=== PATIENT | female | born 1970 | race Caucasian/White ===

== ENCOUNTER 2021-10-01 08:40 | Outpatient (CLI) | payer BC, SELFPAY ==
--- NOTE | 2021-10-01 08:52 | EST_ITS ---
Patient Info Name: Marine Holguin Age: 51 years : 1970 Gender: Female Ht: 63 in Wt: 160 lbs BSA: 1.82 m2 HR: 81 bpm BP: 136 / 64 mmHg Heart Rhythm: Sinus Rhythm Technical Quality: Fair Exam Date: 10/01/2021 9:16 AM Exam Location: [facility] Pulmonary Patient Status: Outpatient Admit Date: 10/01/2021 Staff Ordering Physician: Micheal Mckeon APRN Power Cleaner Operator: Donna Katz RDCS Attending Provider: DR. STEVEN Referring Physician: Mike GAMEZ; Exam Type: CA stress echo Study Info Indications - cp Treadmill exercise stress echocardiogram is performed. Summary 1. 1. Negative Isacc exercise stress test for ischemic ST changes by ECG criteria. 2. 2. Good functional capacity, achieving 8.9 METs of workload. 3. 3. Baseline hypertension. 4. 4. Appropriate HR response to exercise. 5. 5. Appropriate HR recovery at 1 minute post exercise. 6. 6. Negative stress echocardiogram for ischemia by wall motion analysis. 7. 7. Patient informed of the above results. Stress Echo Findings Left Ventricle Appropriate increase in LV endocardial thickening with systole. Appropriate augmentation of contractility with systole. No wall motion abnormality. Left Ventricle Normal LV systolic function, no wall motion abnormality. Protocol: Isacc Stress ECG Details Stage: REST Duration (min): 1 min : 10 sec Speed (mph): 0.0 Grade (%): 0 HR (bpm): 89 SBP (mmHg): 150 DBP (mmHg): 80 METS: --- Stage: REST Duration (min): 14 min : 15 sec Speed (mph): 0.0 Grade (%): 0 HR (bpm): 85 SBP (mmHg): 150 DBP (mmHg): 80 METS: --- Stage: REST Duration (min): 15 min : 5 sec Speed (mph): 0.0 Grade (%): 0 HR (bpm): 90 SBP (mmHg): 150 DBP (mmHg): 80 METS: --- Stage: REST Duration (min): 15 min : 26 sec Speed (mph): 0.0 Grade (%): 0 HR (bpm): 84 SBP (mmHg): 150 DBP (mmHg): 80 METS: --- Stage: REST Duration (min): 15 min : 55 sec Speed (mph): 0.0 Grade (%): 0 HR (bpm): 83 SBP (mmHg): 150 DBP (mmHg): 80 METS: --- Stage: STAGE 1 Duration (min): 0 min : 22 sec Speed (mph): 1.7 Grade (%): 10 HR (bpm): 102 SBP (mmHg): 150 DBP (mmHg): 80 METS: --- Stage: STAGE 1 Duration (min): 1 min : 0 sec Speed (mph): 1.7 Grade (%): 10 HR (bpm): 116 SBP (mmHg): 150 DBP (mmHg): 80 METS: --- Stage: STAGE 1 Duration (min): 2 min : 0 sec Speed (mph): 1.7 Grade (%): 10 HR (bpm): 127 SBP (mmHg): 150 DBP (mmHg): 80 METS: --- Stage: STAGE 1 Duration (min): 3 min : 0 sec Speed (mph): 1.7 Grade (%): 10 HR (bpm): 129 SBP (mmHg): 136 DBP (mmHg): 64 METS: --- Stage: STAGE 2 Duration (min): 1 min : 0 sec Speed (mph): 2.5 Grade (%): 12 HR (bpm): 142 SBP (mmHg): 136 DBP (mmHg): 64 METS: --- Stage: STAGE 2 Duration (min): 2 min : 0 sec Speed (mph): 2.5
== END 2021-10-01 08:41 | disposition home or self-care (01) ==
LOC: ANHCARD 08:41
PROVIDERS: PCP Internal Medicine; Visit Provider Nurse Practitioner
DX: R07.89 Other chest pain (principal); E78.2 Mixed hyperlipidemia; Z82.49 Family history of ischemic heart disease and other diseases of the circulatory system
CPT/HCPCS: 93351

== ENCOUNTER 2021-10-14 15:17 | Outpatient (CLI) | payer BC, SELFPAY ==
--- NOTE | ~2021-10-14 | MM_ITS ---
EXAMINATION: MM screening sofie BI w shyam HISTORY: Screening mammogram TECHNIQUE: Craniocaudal and mediolateral oblique 3-D tomosynthesis images were obtained and synthetic 2-D images were generated. CAD analysis was submitted and interpreted. COMPARISON: 11/10/2017 bilateral screening mammogram BREAST PARENCHYMAL COMPOSITION: There are scattered areas of fibroglandular density. FINDINGS: There is no evidence of suspicious mass, calcification, or architectural distortion to sugg est malignancy in either breast. There has been no suspicious interval change. IMPRESSION: 1. No mammographic evidence of malignancy. 2. Recommend routine screening mammography in one year. BI-RADS Category 1: Negative Reviewed, dictated and finalized at location A.
== END 2021-10-14 15:18 | disposition home or self-care (01) ==
PROVIDERS: PCP Internal Medicine; Visit Provider Nurse Practitioner
DX: Z12.31 Encounter for screening mammogram for malignant neoplasm of breast (principal)
CPT/HCPCS: 77063; 77067

== ENCOUNTER 2021-11-04 14:14 | Outpatient (CLI) | payer BC, SELFPAY ==
--- NOTE | ~2021-11-04 | US_ITS ---
EXAMINATION: US arterial ankle brachial ind DATE: 11/04/2021 14:44 INDICATION: Localized swelling to the lower limbs along with numbness and tingling. Peripheral vascul ar disease risk factors of hypertension and hypercholesterolemia. TECHNIQUE: Segmental pressures and plethysmographic and Doppler waveforms of the brachial and lower e xtremity arteries were obtained. COMPARISON: None. FINDINGS: Right and left brachial artery pressures of 107 mm Hg and 108 mm Hg, respectively, are concordant (no rmal difference <= 30 mmHg). The right ankle-brachial index (SANDEEP) is 1.07 (normal >= 0.9-1.0). The right great toe-brachial index (TBI) is 0.88 (normal >= 0.65). Arterial Doppler waveforms are biphasic with brisk systolic upstrokes at both right posterior tibial and dorsalis pedis arteries. The left SANDEEP is 1.06. The left TBI is 0.80. Arterial Doppler waveforms are biphasic with brisk systol ic upstrokes at both left posterior tibial and dorsalis pedis arteries. IMPRESSION: 1. No significant arterial occlusive disease to either lower limb with normal bilateral ABIs and TBIs . Reviewed, dictated and finalized at location B. IMPRESSION: 1. No significant arterial occlusive disease to either lower limb with normal b ilateral ABIs and TBIs.
== END 2021-11-04 14:15 | disposition home or self-care (01) ==
PROVIDERS: PCP Internal Medicine; Visit Provider Nurse Practitioner
DX: R60.0 Localized edema (principal)
CPT/HCPCS: 93922

== ENCOUNTER 2022-04-01 00:41 | Day surgery (SDC) | payer BC, SELFPAY ==
[2022-03-25 15:48] VITALS: BMI 29.2
--- NOTE | 2022-04-01 08:16 | P.PNAN_ITS ---
Anes - Initial Pre Proc Eval Procedure: Operation Date: 04/01/22 11:00 Proposed Procedures p Screening Colonoscopy - Krishna Cornelius MD Date/Time: 04/01/22 08:16 Surgeon: Krishna Cornelius MD Pre Op Diagnosis: neoplasm screening Patient Data Age: 52 Gender: F Height: 1.57 m Weight: 72.5 kg Allergies Allergy/AdvReac Type Severity Reaction Status Date / Time iodine Allergy Severe Hives Verified 03/25/22 15:50 Home Medications Medication Instructions Recorded Confirmed Type losartan 100 1 tablet PO DAILY #90 tabs 01/10/22 03/25/22 Rx mg-hydrochlorothiazide 25 mg tablet (Hyzaar) icosapent ethyl 1 gram capsule 2 g PO BID 03/25/22 03/25/22 History (Vascepa) Patient hx anesthesia problems: none Family hx anesthesia problems: none Results Review: All pre-operative results and documents have been reviewed as part of the pre- operative evaluation. [facility] Past Medical History Medical History Abnormal liver function Gout Hypertension Hypothyroidism (acquired) Mixed hyperlipidemia Psoriasis Vitamin D deficiency, unspecified Surgical History Surgical History History of endometrial ablation Family History Family History Grandparent Family history of malignant neoplasm of breast Social History Social History (Updated 03/17/22 @ 15:54 by Danuta Pillai CMA) Smoking status: Never smoker Second hand tobacco smoke exposure: No Alcohol intake: current Substance use: never Substance use type: does not use Lack of Transportation: No Lack of Food: Never True Current Housing: I Have Housing Concerned About Future Housing: No Difficulty Paying Gas/Electric Bills: No Difficulty Paying for Meds: No Currently Unemployed: No Education: Bachelor's Degree Difficulty w/ Childcare or Family Care: No Living arrangements: with friend(s) Spiritual care concerns: No Anes - Eval Final PreProcedure Day of Procedure 04/01/22 08:16 Patient weight: overweight Heart: regular rate and rhythm Lungs: clear to auscultation Airway: Mallampati scale class II Neurological: alert and oriented Last oral intake: >/= 8 hours ASA classification: II Emergent: no Anesthetic plan: proceed Anesthesia type and monitoring: general GIVS and standard monitoring Results Review: All pre-operative results and documents have been reviewed as part of the pre- operative evaluation. Informed Consent: The patient's anesthetic plan and its attendant risks and benefits were discussed with the patient/family/POA. Questions were solicited and answers provided to the satisfaction of the patient/family/POA.
[2022-04-01 09:53] VITALS: BP 125/86; PULSE 105; RESP 118; TEMP 36.2; O2SAT 98
[2022-04-01] MEDS: LACTATED RINGERS 1,000 ML 150 ML IV CONT (10:01)
--- NOTE | 2022-04-01 10:19 | PM.HPGS ---
History of Present Illness History of Present Illness Consent: Risks, benefits, and alternatives have been discussed and questions answered. Patient agrees to proceed with procedure. Chief complaint: neoplasm screening Narrative: Marine Holguin is a 52 year old female here for first screening colonoscopy Review of Systems Constitutional: Constitutional: Denies headache(s) and Denies weakness Eyes: Eyes: Denies blurry vision ENT: Reports Normal hearing present, Denies headache(s) and Denies neck pain Cardiovascular: Cardiovascular: Denies chest pain and Denies dyspnea Respiratory: Respiratory: Denies dyspnea Gastrointestinal: Gastrointestinal: Reports no additional gastrointestinal complaints Genitourinary: Genitourinary: Denies dysuria Musculoskeletal: Musculoskeletal: Denies neck pain Integumentary/Breasts: Skin/Breast: Reports rash Neurologic: Reports Normal hearing present, Denies headache(s) and Denies weakness Psychiatric: Psychiatric: Denies anxiety Endocrine: Endocrine: Denies change in body appearance Hematologic/Lymphatic: Hematologic/Lymphatic: Denies easy bleeding Allergic/Immunologic: Allergic/Immunologic: Denies urticaria PMFSH Past Medical History Medical History Abnormal liver function Gout Hypertension Hypothyroidism (acquired) Mixed hyperlipidemia Psoriasis Vitamin D deficiency, unspecified Surgical History Surgical History History of endometrial ablation Family History Family History Grandparent Family history of malignant neoplasm of breast Social History Social History (Updated 03/17/22 @ 15:54 by Danuta Pillai CMA) Smoking status: Never smoker Second hand tobacco smoke exposure: No Alcohol intake: current Substance use: never Substance use type: does not use Lack of Transportation: No Lack of Food: Never True Current Housing: I Have Housing Concerned About Future Housing: No Difficulty Paying Gas/Electric Bills: No Difficulty Paying for Meds: No Currently Unemployed: No Education: Bachelor's Degree Difficulty w/ Childcare or Family Care: No Living arrangements: with friend(s) Spiritual care concerns: No Meds Home Medications and Allergies Home Medications Medication Instructions Recorded Confirmed Type losartan 100 1 tablet PO DAILY #90 tabs 01/10/22 03/25/22 Rx mg-hydrochlorothiazide 25 mg tablet (Hyzaar) icosapent ethyl 1 gram capsule 2 g PO BID 03/25/22 03/25/22 History (Vascepa) Allergies Allergy/AdvReac Type Severity Reaction Status Date / Time iodine Allergy Severe Hives Verified 03/25/22 15:50 Vital Signs Vital Signs - 24 hr 04/01/22 09:53 Temperature 97.2 F L Pulse Rate 105 H Respiratory Rate 118 H Blood Pressure 125/86 Pulse Oximetry 98 Oxygen Delivery Room Air Exam Const: General: comfortable and no acute distress HENMT: Face/Nose/Sinus: Normal nares present Eyes: General: appearance normal, both eyes and all related structures Neck: Neck: no JVD Resp: Auscultation: clear to auscultation bilaterally Cardio: Rate: regular rate Rhythm: regular rhythm GI: Inspection: non-distended GI Palp: Yes Soft to palpation Skin: Other: psoriasis Neuro: General: gait normal Speech: normal speech Extrem: General: normal to inspection Psych: Mental Status: mental status grossly normal Assessment and Plan Assessment and plan (1) Screening for colon cancer: Code(s): Z12.11 - Encounter for screening for malignant neoplasm of colon Status: Acute Assessment and Plan: colonoscopy
[2022-04-01 10:39] VITALS: BP 112/67; PULSE 83; RESP 24; O2SAT 99
[2022-04-01 10:49] VITALS: BP 117/81; PULSE 84; RESP 16; O2SAT 98
[2022-04-01 10:59] VITALS: BP 122/85; PULSE 85; RESP 18; O2SAT 98
== END 2022-04-01 11:02 | disposition home or self-care (01) ==
PROVIDERS: PCP Internal Medicine; Visit Provider Internal Medicine Gastroenterology
PROC: 0DJD8ZZ Inspection of Lower Intestinal Tract, Via Natural or Artificial Opening Endoscopic (ICD-10-PCS; CPT 45378; principal; 2022-04-01 11:00)
DX: Z12.11 Encounter for screening for malignant neoplasm of colon (principal); K64.8 Other hemorrhoids; I10 Essential (primary) hypertension; E78.2 Mixed hyperlipidemia
CPT/HCPCS: 45378; J2704; J7120

== ENCOUNTER 2025-02-28 15:41 | Outpatient (CLI) | payer BC, SELFPAY ==
--- NOTE | ~2025-02-28 | MM_ITS ---
EXAMINATION: MM screening sofie BI w shyam HISTORY: Screening TECHNIQUE: Craniocaudal and mediolateral oblique 3-D tomosynthesis images were obtained and synthetic 2-D images were generated. CAD analysis was submitted and interpreted. COMPARISON: 10/14/2021 BREAST PARENCHYMAL COMPOSITION: There are scattered areas of fibroglandular density. FINDINGS: There is no evidence of suspicious mass, calcification, or architectural distortion to suggest malignancy. There has been no suspicious interval change. IMPRESSION: 1. No mammographic evidence of malignancy. Recommend routine screening mammography in one year. BI-RADS Category 2: Benign finding(s) Reviewed, dictated and finalized at location Q. IMPRESSION: 1. No mammographic evidence of malignancy. Recommend routine screening mammogra phy in one year. BI-RADS Category 2: Benign finding(s)
== END 2025-02-28 15:42 | disposition home or self-care (01) ==
PROVIDERS: PCP Nurse Practitioner; Visit Provider Obstetrics & Gynecology
DX: Z12.31 Encounter for screening mammogram for malignant neoplasm of breast (principal)
CPT/HCPCS: 77063; 77067